=== PATIENT | male | born 1960 | race Caucasian/White ===

== ENCOUNTER 2019-05-31 09:23 | Outpatient (CLI) | payer OTHER, SELFPAY ==
--- NOTE | ~2019-05-31 | US_ITS ---
EXAMINATION: US abdomen complete EXAM DATE: 05/31/2019 10:18 INDICATION: Left-sided abdominal pain. TECHNIQUE: Multiple grayscale and Doppler images of the complete abdomen were obtained (by a technolo gist who performed the scan) and subsequently reviewed. Comparison is made to prior examination from 09/29/2008. FINDINGS: The abdominal aorta is normal in caliber. Visualized portion IVC is patent. The pancreatic head a nd body are normal in appearance. The pancreatic tail is not visualized. The liver has normal echogenicity and contour. There are no focal liver lesions identified. There is no evidence of intrahepatic biliary duct dilation. Portal venous flow was seen in the hepatopedal , normal direction and has normal Doppler waveform. Common bile duct measures 4 mm, which is normal. The gallbladder wall is normal in thickness, with ex pected amount of distention. No sonographic evidence of pericholecystic fluid. There is no cholelit hiases. Technologist performing exam reports patient did not demonstrate sonographic Blanton's sign. Please note that this sign is less reliable in patients who have received pain medication. Right kidney: There is normal contour and echogenicity. It measures 11.2 x 6.6 x 5.3 centimeters. T here is a lobulation which appears unchanged compared to 2008. There is no hydronephrosis. Left kidney: There is normal contour and echogenicity. It measures 12.3 x 5.4 x 5.5 centimeters. T here are no focal renal lesions identified. There is no hydronephrosis. The spleen measures 10 centimeters and is morphologically normal. IMPRESSION: 1. Unremarkable complete abdominal ultrasound exam. Reviewed, dictated and finalized at location B. [facility] [employer]
== END 2019-05-31 09:24 | disposition home or self-care (01) ==
PROVIDERS: PCP Family Medicine; Visit Provider Family Medicine
DX: R10.9 Unspecified abdominal pain (principal)
CPT/HCPCS: 76700

== ENCOUNTER 2020-01-30 07:56 | Outpatient (CLI) | payer OTHER, SELFPAY ==
--- NOTE | 2020-02-25 11:39 | WPDHOMESLEEP ---
Sleep Study - Home Unattended Date of Study: 01/30/20 Ordering Provider: Kamaljit Henderson MD Interpreting Physician: Lyudmila Brandt MD Home Sleep Study Type: Apnea Link Air Height: 1.78 m Weight: 79.832 kg Body Mass Index: 25.2 [place]: 13 Reason for Sleep Study Waking up gasping for breath Sleep History Micha Denise is a 59 year old man with a history of gasping for breath at night. He notices his heart beating irregularly and rapidly for several minutes. This is been going on for several years. Has had 2 previous sleep test which showed negative results. These tests were 20 years ago. He has multiple members of his family who use CPAP for sleep apnea. He frequently snores and it is frequently loud enough the others complain about it. He rarely awakens at night with heartburn, bowel chair coughing. He occasionally awakens from sleep feeling short of breath. He occasionally has trouble sleeping with a cold. He occasionally wakes up gasping for breath at night and occasionally has breathing problems at night reported to him by others. He does not sweats excessively at night. He occasionally notices his heart being irregularly at night. He occasionally falls asleep during the day, never in voluntary leak, never while driving. He is retired. He does not fall asleep during physical effort. He does not have loss of muscle tone was strong motion. He rarely has daytime difficulties due to excessive sleepiness. He does not feel paralyzed on waking or falling asleep and does not have vivid dreams like seems upon awakening or falling asleep. He has never for a to go to sleep. He rarely has nightmares. He occasionally remembers his dreams. He rarely has racing thoughts, rarely feels said depressed or anxious. He does not have muscular tension and does not notice part of his body jerking at night. He rarely kicks at night. He did rarely has aching feeling in his legs before sleep. He rarely has leg pain during the night. He denies morning jaw pain. He occasionally g of sleep during teeth. He rarely is bothered by pain during the day and rarely is awakened by pain at night. He occasionally wakes up feeling stiff in the morning, rarely with sore or aching muscles. He rarely wakes up with pain in the neck and spine. He has fatigue and bowel disturbances. Normal bedtime is 10:00 p.m. falling asleep within 5-10 minutes waking up multiple times at night. 99% the times he a wakes he stays awake 1 or 2 minutes but on occasion he will stay awake 1 or 2 hours. When he is awake he will lie in bed and try to go back to sleep. His normal wake up time is between 5:00 a.m. and 6:30 a.m.. We can schedule is the same. He does not take naps. A short nap is not refreshing. He is drowsy in the morning for 3 hours or longer. He feels better in the morning then other times of day. Habits: Never smoked tobacco. Caffeine 1-2 pt per day. Alcohol 2 or 3 beers on 2 or 3 days out of the week. No recreational drugs. [facility] Past Medical History Medical History (Updated 02/25/20 @ 11:45 by Lyudmila Brandt MD) Abdominal pain in male Abnormal fasting glucose Carpal tunnel syndrome on both sides Glaucoma History of basal cell carcinoma Hypersomnolence Hypertension Irritable bowel syndrome with diarrhea Mixed hyperlipidemia Family History Family History Mother Diabetes mellitus, Onset Age: 80 Family history of kidney disease, Onset Age: 80 Family history of chronic obstructive pulmonary disease Family history of dementia Family history of congestive heart failure Father Patient's father is , Onset Age: 61 Family history of cardiovascular disease Acute myocardial infarction Social History Social History (Updated 02/25/20 @ 11:47 by Lyudmila Brandt MD) Smoking status: Never smoker Alcohol intake: current Drinks per week: 5 Alcohol use details: 2-3 drinks on 2-3 d
[2020-03-02 10:09] VITALS: BMI 25.2
== END 2020-01-30 07:57 | disposition home or self-care (01) ==
LOC: ANHCSM 08:19
PROVIDERS: PCP Family Medicine; Visit Provider Internal Medicine Cardiovascular Disease
DX: G47.30 Sleep apnea, unspecified (principal); G47.10 Hypersomnia, unspecified
CPT/HCPCS: 95806

== ENCOUNTER 2020-03-30 02:33 | Outpatient (CLI) | payer OTHER, SELFPAY ==
[2020-03-30 18:35] LABS: SARS-CoV-2 RNA PCR Negative
== END 2020-03-30 02:34 | disposition home or self-care (01) ==
LOC: ANHCOVIDDT 02:33
PROVIDERS: PCP Family Medicine; Visit Provider Internal Medicine Critical Care Medicine
DX: Z01.812 Encounter for preprocedural laboratory examination (principal); Z20.828 Contact with and (suspected) exposure to other viral communicable diseases
CPT/HCPCS: 87635; C9803; U0003

== ENCOUNTER → 2020-09-08 01:25 | Outpatient (CLI) | payer OTHER, SELFPAY ==
[2020-09-09 19:27] LABS: SARS-CoV-2 RNA PCR Negative
== END ==
PROVIDERS: PCP Family Medicine; Visit Provider Internal Medicine Critical Care Medicine
DX: Z01.812 Encounter for preprocedural laboratory examination (principal); Z20.822 Contact with and (suspected) exposure to COVID-19
CPT/HCPCS: C9803; U0003; U0005

== ENCOUNTER 2020-11-03 09:22 | Outpatient (CLI) | payer OTHER, SELFPAY ==
--- NOTE | 2020-11-18 16:00 | WPDSLEEPSTUD ---
Sleep Study Date of Study: 11/03/20 Ordering Provider: Marcus Stover APRN Interpreting Physician: Lyudmila Brandt MD Sleep Study Type: Split Polysomnogram Height: 1.78 m Weight: 80.739 kg Body Mass Index: 25.5 Neck Circumference (inches): 16 [place]: 8 Reason for Sleep Study Hypersomnia Sleep History Micha Denise is a 59 year old man reports waking up gasping for breath and noticing his heart beating rapidly for few minutes during the night. This has been going on for years. He had 2 prior sleep tests without a diagnosis of sleep-disordered breathing. There is a family history of sleep apnea in multiple family members. He frequently snores loudly enough that others complain about it. He rarely awakens at night with heartburn, belching or coughing. He occasionally awakens from sleep feeling short of breath. He occasionally has trouble sleeping with a cold and occasionally gasp for breath at night. He occasionally has breathing problems at night reported to him by his . He never sweats excessively at night, he occasionally notices his heart pounding irregularly at night. He occasionally falls asleep during the day. He never falls asleep involuntarily or while driving. He does not have loss of muscle tone with strong emotion. He rarely has daytime difficulties due to excessive sleepiness. He does not feel paralyzed on waking or falling asleep nor does he have vivid dreamlike scenes upon awakening or falling asleep. He does not feel afraid to go to sleep. He rarely has nightmares. He occasionally remembers his dreams. He rarely has racing thoughts, feelings of sadness, depression or anxiety. He does not have muscular tension or notice part of his body jerking. He rarely kicks at night, rarely is crawling aching feelings in his legs or any other kind of leg pain at night. He does not have morning jaw pain. He occasionally grinds his teeth during sleep. He rarely is bothered by pain during the day, rarely awakened by pain at night. He occasionally wakes up feeling stiff in the morning rarely with sore achy muscles, rarely with spine and joint pains. He has fatigue. Normal bedtime 10:00 p.m. falling asleep within 5-10 minutes, waking multiple times at night. When he awakens he will try to reposition, control his mind so he does not over think and return to sleep. Most of the time it takes him 1 or 2 minutes to fall asleep again however 1% of the time he says it takes 1-2 hours to return to sleep. He does not take naps in the afternoon or evening. A short nap is not refreshing. He is drowsy in the morning for 3 hours or longer. Habits: Never smoked tobacco. Caffeine 16-20 oz per day. Alcohol 2-3 beers on 2-3 days out of the week. No recreational drugs. [facility] Past Medical History Medical History (Updated 11/18/20 @ 16:09 by Lyudmila Brandt MD) Abdominal pain in male Abnormal fasting glucose BMI 23.0-23.9, adult Carpal tunnel syndrome on both sides Glaucoma History of basal cell carcinoma Hypersomnolence Hypertension Irritable bowel syndrome with diarrhea Mixed hyperlipidemia Vitamin B12 deficiency anemia Family History Family History Mother Diabetes mellitus, Onset Age: 80 Family history of kidney disease, Onset Age: 80 Family history of chronic obstructive pulmonary disease Family history of dementia Family history of congestive heart failure Father Patient's father is , Onset Age: 61 Family history of cardiovascular disease Acute myocardial infarction Social History Social History (Updated 11/11/20 @ 13:17 by Porsche Dykes MA) Smoking status: Never smoker Alcohol intake: current Drinks per week: 6 Alcohol use details: 2-3 drinks on 2-3 days out of the week Substance use: never Substance use type: does not use Medications Home Medications Medication Instructions Recorded Confirmed Type aspirin 8
[2020-11-23 11:01] VITALS: BMI 25.5
== END 2020-11-04 06:38 | disposition home or self-care (01) ==
LOC: ANHCSM 09:22
PROVIDERS: PCP Family Medicine; Visit Provider Nurse Practitioner Family
DX: R06.83 Snoring (principal); G47.10 Hypersomnia, unspecified
CPT/HCPCS: 95811

== ENCOUNTER 2021-05-24 00:26 | Day surgery (SDC) | payer OTHER, SELFPAY ==
[2021-05-21 17:50] VITALS: BMI 24.7
[2021-05-24] VITALS (8 sets, daily range): BP systolic 115–149; BP diastolic 73–88; PULSE 59–70; RESP 14–18; TEMP 36.4; O2SAT 94–100; BMI 24.0
[2021-05-24 07:31] LABS: Basophils Percent Auto 0.5 % (0.2-1.2); Eosinophils Absolute Auto 0.1 K/mm3 (0-0.3); Eosinophils Percent Auto 1.7 % (0-4.4); Hematocrit 44.4 % (42.0-52.0); Hemoglobin 15.4 g/dL (14.0-18.0); Immature Granulocyte Absolute 0.01 K/mm3 (0.00-0.031); Immature Granulocyte Percent A 0.2 % (0-0.5); Lymphocytes Absolute Auto 1.41 K/mm3 (0.9-3.2); Lymphocytes Percent Auto 22.3 % (18.3-44.2); Mean Corpuscular HGB Conc 34.7 g/dl (32-36); Mean Corpuscular Hemoglobin 31.9 pg (26-34); Mean Corpuscular Volume 91.9 fl (80-100); Mean Platelet Volume 8.8 fl (7.4-10.4); Monocytes Absolute Auto 0.6 K/mm3 (0.1-0.6); Neutrophils Absolute Auto 4.1 K/mm3 (1.3-6.7); Neutrophils Percent Auto 65.3 % (45.5-73.1); Platelet Count Result 163 k/mm3 (150-375); Red Blood Count 4.83 M/mm3 (4.6-6.20); Red Cell Distribution Width 12.9 % (11.5-14.5); White Blood Count 6.3 K/mm3 (4.5-10.0)
[2021-05-24 07:41] LABS: Anion Gap 5 mmol/L (8-16); Blood Urea Nitrogen 15 mg/dL (9-20); Calcium 9.2 mg/dL (8.4-10.2); Carbon Dioxide 28 mmol/L (22-30); Chloride 105 mmol/L (98-107); Estimated CRCL calculation 72 ml/min; Estimated Glomerular Filt Rate > 60; Glucose 111 mg/dL (65-110); Sodium 138 mmol/L (137-145)
--- NOTE | 2021-05-24 08:48 | WPDMODSED ---
Moderate Sedation Note-Pt Data Patient Data Diagnosis: Abnormal coronary calcium score Present Complaint: none Procedure to be performed/Plan: left heart catheterization Allergies Allergy/AdvReac Type Severity Reaction Status Date / Time clindamycin AdvReac Severe Diarrhea Verified 05/21/21 18:41 Home Medications Medication Instructions Recorded Confirmed Type aspirin 81 mg tablet,delayed 81 mg PO EVERY OTHER DAY 03/13/19 05/24/21 History release cyanocobalamin (vitamin B-12) 500 500 mcg PO DAILY 03/13/19 05/24/21 History mcg tablet latanoprost 0.005 % eye drops 1 drop EACH EYE DAILY 03/13/19 05/24/21 History timolol maleate 0.5 % eye gel 1 drop EACH EYE DAILY 03/13/19 05/24/21 History forming solution cholecalciferol (vitamin D3) 50 2,000 unit PO DAILY cap 11/11/20 05/24/21 History mcg (2,000 unit) capsule metoprolol succinate 100 mg 100 mg PO DAILY #90 tablet 02/12/21 05/24/21 Rx tablet,extended release 24 hr simvastatin 20 mg tablet 20 mg PO DAILY #90 tablet 02/12/21 05/24/21 Rx Daily Probiotic 1 tablet PO DAILY 05/21/21 05/24/21 History calcium polycarbophil [Fiber 625 mg PO DAILY 05/21/21 05/24/21 History (calcium polycarbophil)] Current Medications: Active Medications Sodium Chloride (Normal Saline Iv) 500 mls @ 100 mls/hr IV CONT .Q5H NOEL Sedation/Anesthesia: No previous sedation/anesthesia problems (including family history). [facility] Past Medical History Medical History (Updated 05/04/21 @ 17:24 by Fam Ibrahim MD) Abdominal pain in male Abnormal fasting glucose BMI 23.0-23.9, adult BMI 24.0-24.9, adult Carpal tunnel syndrome on both sides Colon cancer screening Cologuard screening through insurance on 03/12/2021 was negative. Recheck in 3 years Family history of premature coronary artery disease exercise stress test was negative for ischemia 05/03/2021 Glaucoma History of basal cell carcinoma Hypersomnolence Hypertension Irritable bowel syndrome with diarrhea Mixed hyperlipidemia Vitamin B12 deficiency anemia Family History Family History Mother Diabetes mellitus, Onset Age: 80 Family history of kidney disease, Onset Age: 80 Family history of chronic obstructive pulmonary disease Family history of dementia Family history of congestive heart failure Father Patient's father is , Onset Age: 61 Family history of cardiovascular disease Acute myocardial infarction Social History Social History Smoking status: Never smoker Second hand tobacco smoke exposure: Yes (patient's father smoked 3 PPD, lived [place] to [employer] growing up) Alcohol intake: current Drinks per week: 8 Alcohol use details: typically 2-3 drinks on weekend days or 3 days a week Substance use: never Substance use type: does not use Living arrangements: with family Spiritual care concerns: No Mod Sed Physical Exam Physical Exam Pre Procedural Exam: Normal: Appearance, Neck, Throat, Airway, Lungs, Heart Size, Heart Rate, Heart Rhythm and Extremities Hours since solid foods: 12 Hours since liquid intake: 12 Mallampati Classification: class II Internal Medicine - PN: Obj Da Vital Signs Vital Signs: Vital Signs - 24 hr 05/24/21 07:26 Temperature 36.4 C L Pulse Rate 70 Respiratory Rate 16 Blood Pressure 149/88 H Pulse Oximetry 100 Meds/Results Medications: Active Medications Generic Name Dose Route Start Last Admin Trade Name Freq PRN Reason Stop Dose Admin Sodium Chloride 500 mls @ 100 mls/hr 05/24/21 07:00 Normal Saline Iv IV CONT .Q5H NOEL Labs CBC & Chem 7: 05/24/21 07:24 05/24/21 07:24 Labs: Laboratory Results - last 24 hr 05/24/21 05/24/21 07:24 07:24 WBC 6.3 RBC 4.83 Hgb 15.4 Hct 44.4 MCV 91.9 MCH 31.9 MCHC 34.7 RDW 12.9 Plt Count 163 MPV 8.8 Im
--- NOTE | 2021-05-24 09:26 | P.PCNCC_ITS ---
Cardiac Cath Procedure Note Date of procedure:: 05/24/21 Performing physician:: Alex Quiroz MD Indication:: Abnormal coronary calcium score electrocardiographically abnormal stress echo Brief clinical history:: this is a 60-year-old man without history of coronary disease and without any ischemic symptoms. He recently underwent ischemic testing because of coronary disease in his brother. He was found to have a elevated coronary calcium score. This was followed by stress echocardiogram which was electrocardiographically mildly abnormal but there were no echocardiographic abnormalities. In this setting and angiogram has been scheduled for today. Procedure Procedure performed:: Left ventriculography coronary angiography Angio-Seal to right femoral artery Sedation/Medication given:: fentanyl 50 mg Versed 2 mg case start time 9:00 a.m. case end time 9:17 a.m. Access site:: right femoral artery Estimated blood loss:: 15 cc Procedure note:: patient was brought to the cardiac catheterization lab in the postabsorptive state where the right femoral [place] was prepped and draped in the usual sterile fashion. anesthesia was provided with 1% lidocaine injected locally. Using the modified Seldinger technique a 5 [place] vascular sheath was then placed and a left heart catheterization was carried out. A 5 [place] angled pigtail catheter was used to perform left ventriculography in the [place] projection and to measure left-sided central hemodynamics. Following this a standard 5 [place] FL4 catheter was used to engage inject the left coronary artery in multiple projections. A 5 [place] JR4 catheter was used to engage inject the right coronary artery in orthogonal projections. Following this the case was terminated an angiogram was done of the femoral artery through the sheath after which an Angio-Seal device was deployed with a good hemostatic result. 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 Findings:: Hemodynamics: Central aortic pressure was 126 over 68 left ventricle 126/0 end-diastolic pressure 10 is no gradient on pullback the aortic valve. Left ventricle: The LV is normal in size all segments contract normally the global ejection fraction is 60-65%. No regional wall motion abnormalities were identified. The left main coronary artery is nicely patent the left anterior descending is a moderate caliber artery extends down to, around the apex and provides a significant amount of flow to the inferior wall. There is 1 area of atherosclerotic stenosis in the LAD in the mid segment. This lesion is somewhat eccentric but represents about 50-60% stenosis angiographica lly. The remainder of the LAD is normal. Circumflex is a large caliber vessel dominant to the posterior circulation. The circumflex the marginal and posterior branches are angiographically free of disease. Right coronary artery is small in caliber and gives rise to 2 acute marginal RV branches. The right coronary artery is angiographically free of disease. Conclusion:: 1. Single-vessel coronary artery disease with approximately 50- 60% stenosis in the midportion of the LAD as described above 2. preserved left ventricular systolic function 3. left coronary dominant circulation 4. Angio-Seal to right femoral artery Alex Quiroz MD [facility]
--- NOTE | 2021-05-24 12:31 | SUR.PHASEII ---
1230-DISCHARGE INSTRUCTION REVIEWED WITH PT, ALL QUESTIONS ANSWERED. PT WILL BE TRANSPORTED OFF FLOOR VIA WHEELCHAIR.
== END 2021-05-24 12:40 | disposition home or self-care (01) ==
PROVIDERS: PCP Family Medicine; Visit Provider Specialist
PROC: 4A023N7 Measurement of Cardiac Sampling and Pressure, Left Heart, Percutaneous Approach (ICD-10-PCS; CPT 93452; principal; 2021-05-24 08:30)
DX: I25.10 Atherosclerotic heart disease of native coronary artery without angina pectoris (principal); R94.39 Abnormal result of other cardiovascular function study; I10 Essential (primary) hypertension; E78.2 Mixed hyperlipidemia; H40.9 Unspecified glaucoma; K58.0 Irritable bowel syndrome with diarrhea; D51.3 Other dietary vitamin B12 deficiency anemia; Z79.82 Long term (current) use of aspirin
CPT/HCPCS: 36415; 80048; 85025; 93458; A9270; C1760; C1887; C1894; G0269; J0583; J1644; J2250; J3010; J7040

== ENCOUNTER 2022-01-31 00:21 | Day surgery (SDC) | payer OTHER, SELFPAY ==
[2022-01-12 14:59] VITALS: BMI 23.7
[2022-01-31 06:23] VITALS: BP 134/68; PULSE 63; RESP 18; TEMP 36.1; O2SAT 100
[2022-01-31] MEDS: LACTATED RINGERS 1,000 ML 150 ML IV CONT (06:34)
--- NOTE | 2022-01-31 06:55 | WPDANESEPPF ---
Anes - Initial Pre Proc Eval Procedure: Operation Date: 01/31/22 07:30 Proposed Procedures p Colonoscopy - Joseph Cooper MD Date/Time: 01/31/22 06:55 Surgeon: Joseph Cooper MD Pre Op Diagnosis: diarrhea Patient Data Age: 61 Gender: M Height: 1.78 m Weight: 74.2 kg Last Vital Signs Temp 36.1 C L 01/31/22 06:23 Pulse 63 01/31/22 06:23 Resp 18 01/31/22 06:23 BP 134/68 01/31/22 06:23 Pulse Ox 100 01/31/22 06:23 O2 Del Method Room Air 01/31/22 06:23 Allergies Allergy/AdvReac Type Severity Reaction Status Date / Time clindamycin AdvReac Severe Diarrhea Verified 01/31/22 06:21 Home Medications Medication Instructions Recorded Confirmed Type cyanocobalamin (vitamin B-12) 500 500 mcg PO DAILY 03/13/19 01/12/22 History mcg tablet (Vitamin B-12) latanoprost 0.005 % eye drops 1 drop ophthalmic (eye) DAILY 03/13/19 01/12/22 History timolol maleate 0.5 % eye gel 1 drop ophthalmic (eye) DAILY 03/13/19 01/12/22 History forming solution cholecalciferol (vitamin D3) 50 2,000 unit PO DAILY 11/11/20 01/12/22 History mcg (2,000 unit) capsule metoprolol succinate 100 mg 100 mg PO DAILY #90 tabs 02/12/21 01/12/22 Rx tablet,extended release 24 hr rosuvastatin 20 mg tablet (Crestor) 20 mg PO DAILY 07/04/21 01/12/22 History aspirin 81 mg tablet,delayed 81 mg PO DAILY 08/24/21 01/12/22 History release (Adult Low Dose Aspirin) calcium polycarbophil 625 mg 1,250 mg PO BID #120 tabs 10/06/21 01/12/22 Rx tablet (Fiber (calcium polycarbophil)) amitriptyline 10 mg tablet 10 mg PO QHS #30 tabs 11/23/21 01/12/22 Rx sodium,potassium,mag sulfates 17.5 See Rx Instructions PO .COMPLEX 12/07/21 Rx gram-3.13 gram-1.6 gram oral soln #354 mL (Suprep Bowel Prep Kit) Patient hx anesthesia problems: none Family hx anesthesia problems: none Results Review: All pre-operative results and documents have been reviewed as part of the pre-operative evaluation. [facility] Past Medical History Medical History (Updated 01/31/22 @ 06:59 by Quinton Kaba DO) Abdominal pain in male Abnormal fasting glucose Atherosclerotic heart disease of [place] coronary artery without angina pectoris (05/24/21) 50-60% lesion in the mid LAD on 05/24/2021 BMI 23.0-23.9, adult BMI 24.0-24.9, adult CAD (coronary artery disease) Carpal tunnel syndrome on both sides Colon cancer screening Cologuard screening through insurance on 03/12/2021 was negative. Recheck in 3 years Family history of premature coronary artery disease exercise stress test was negative for ischemia 05/03/2021 Glaucoma History of basal cell carcinoma Hypersomnolence Hypertension Irritable bowel syndrome with diarrhea Mixed hyperlipidemia Total cholesterol 115, HDL 43, triglycerides 105, LDL 51 on 11/02/2021. MARSHA (obstructive sleep apnea) Restless leg syndrome Vitamin B12 deficiency anemia Family History Family History Mother Diabetes mellitus, Onset Age: 80 Family history of kidney disease, Onset Age: 80 Family history of chronic obstructive pulmonary disease Family history of dementia Family history of congestive heart failure Father Patient's father is , Onset Age: 61 Family history of cardiovascular disease Acute myocardial infarction Social History Social History Smoking status: Never smoker Second hand tobacco smoke exposure: Yes (patient's father smoked 3 PPD, lived next to [employer] growing up) Alcohol intake: current Drinks per week: 9 Alcohol use details: typically 2-3 drinks on weekend days or 3 days a week Substance use: never Substance use type: does not use Living arrangements: with family Spiritual care concerns: No Anes - Eval Final PreProcedure Day of Procedure 01/31/22 06:55 Patient weight: normal Heart: regular rate and rhythm Lungs: clear to aus
--- NOTE | 2022-01-31 07:44 | PM.HPGS ---
History of Present Illness History of Present Illness Consent: Risks, benefits, and alternatives have been discussed and questions answered. Patient agrees to proceed with procedure. Chief complaint: diarrhea Narrative: Micha Denise is a 61 year old male Presents for colonoscopy. Patient complains of ongoing diarrhea and urgency. He denies bleeding. He has no significant abdominal pain. Recent trial of fiber supplementation is not help. He was recently given a low dose of Elavil 10mg at bedtime that seems to have eased his urgency somewhat. He presents today for colonoscopy. His last colonoscopy 2013 was unremarkable. Patient's family history noncontributory. Review of Systems Review of Systems: Review of systems noncontributory. [facility] Past Medical History Medical History (Updated 01/31/22 @ 06:59 by Quinton Kaba DO) Abdominal pain in male Abnormal fasting glucose Atherosclerotic heart disease of [place] coronary artery without angina pectoris (05/24/21) 50-60% lesion in the mid LAD on 05/24/2021 BMI 23.0-23.9, adult BMI 24.0-24.9, adult CAD (coronary artery disease) Carpal tunnel syndrome on both sides Colon cancer screening Cologuard screening through insurance on 03/12/2021 was negative. Recheck in 3 years Family history of premature coronary artery disease exercise stress test was negative for ischemia 05/03/2021 Glaucoma History of basal cell carcinoma Hypersomnolence Hypertension Irritable bowel syndrome with diarrhea Mixed hyperlipidemia Total cholesterol 115, HDL 43, triglycerides 105, LDL 51 on 11/02/2021. MARSHA (obstructive sleep apnea) Restless leg syndrome Vitamin B12 deficiency anemia Family History Family History Mother Diabetes mellitus, Onset Age: 80 Family history of kidney disease, Onset Age: 80 Family history of chronic obstructive pulmonary disease Family history of dementia Family history of congestive heart failure Father Patient's father is , Onset Age: 61 Family history of cardiovascular disease Acute myocardial infarction Social History Social History Smoking status: Never smoker Second hand tobacco smoke exposure: Yes (patient's father smoked 3 PPD, lived [place] to [employer] growing up) Alcohol intake: current Drinks per week: 9 Alcohol use details: typically 2-3 drinks on weekend days or 3 days a week Substance use: never Substance use type: does not use Living arrangements: with family Spiritual care concerns: No Meds Home Medications and Allergies Home Medications Medication Instructions Recorded Confirmed Type cyanocobalamin (vitamin B-12) 500 500 mcg PO DAILY 03/13/19 01/12/22 History mcg tablet (Vitamin B-12) latanoprost 0.005 % eye drops 1 drop ophthalmic (eye) DAILY 03/13/19 01/12/22 History timolol maleate 0.5 % eye gel 1 drop ophthalmic (eye) DAILY 03/13/19 01/12/22 History forming solution cholecalciferol (vitamin D3) 50 2,000 unit PO DAILY 11/11/20 01/12/22 History mcg (2,000 unit) capsule rosuvastatin 20 mg tablet (Crestor) 20 mg PO DAILY 07/04/21 01/12/22 History aspirin 81 mg tablet,delayed 81 mg PO DAILY 08/24/21 01/12/22 History release (Adult Low Dose Aspirin) calcium polycarbophil 625 mg 1,250 mg PO BID #120 tabs 10/06/21 01/12/22 Rx tablet (Fiber (calcium polycarbophil)) amitriptyline 10 mg tablet 10 mg PO QHS #30 tabs 11/23/21 01/12/22 Rx sodium,potassium,mag sulfates 17.5 See Rx Instructions PO .COMPLEX 12/07/21 Rx gram-3.13 gram-1.6 gram oral soln #354 mL (Suprep Bowel Prep Kit) metoprolol succinate 100 mg 100 mg PO DAILY #90 tabs 01/31/22 Rx tablet,extended release 24 hr Allergies Allergy/AdvReac Type Severity Reaction Status Date / Time clindamycin AdvReac Severe Diarrhea Verified 01/31/22 06:21 Vital Signs Vital Signs - 24 hr 01/31/22 06:23
[2022-01-31 07:46] VITALS: BP 88/55; PULSE 59; RESP 15; O2SAT 99
[2022-01-31 07:56] VITALS: BP 99/63; PULSE 69; RESP 21; O2SAT 99
[2022-01-31 08:06] VITALS: BP 100/69; PULSE 70; RESP 20; O2SAT 99
== END 2022-01-31 08:18 | disposition home or self-care (01) ==
PROVIDERS: PCP Family Medicine; Visit Provider Internal Medicine Gastroenterology
PROC: 0DJD8ZZ Inspection of Lower Intestinal Tract, Via Natural or Artificial Opening Endoscopic (ICD-10-PCS; CPT 45378; principal; 2022-01-31 07:30)
DX: Z12.11 Encounter for screening for malignant neoplasm of colon (principal); R19.7 Diarrhea, unspecified; K64.8 Other hemorrhoids; K57.30 Diverticulosis of large intestine without perforation or abscess without bleeding; Z79.82 Long term (current) use of aspirin; K58.0 Irritable bowel syndrome with diarrhea; I25.10 Atherosclerotic heart disease of native coronary artery without angina pectoris; G47.10 Hypersomnia, unspecified; G47.33 Obstructive sleep apnea (adult) (pediatric); Z85.828 Personal history of other malignant neoplasm of skin; I10 Essential (primary) hypertension; E78.2 Mixed hyperlipidemia; G25.81 Restless legs syndrome; D51.9 Vitamin B12 deficiency anemia, unspecified
CPT/HCPCS: 45380; 88305; J2704; J7120

== ENCOUNTER → 2023-08-02 09:16 | Outpatient (CLI) | payer OTHER, SELFPAY ==
--- NOTE | ~2023-08-02 | XR_ITS ---
Lumbosacral Spine: AP, oblique, and lateral views Clinical History: Pain Findings: The normal lordotic curve is maintained. Probable mild chronic anterior wedging deformity o f L1. Suspected mild chronic loss of height of T8 and T9. There are mild to moderate degenerative dis c changes throughout the lumbar spine. There is mild facet arthropathy throughout the lumbar spine. T he sacroiliac joints are normally outlined. Impression: Suspected mild chronic wedging deformity/loss of height of T8, T9, and L1. [id number] degenerative spondylosis of the lumbar spine, as above. Reviewed, dictated and finalized at [facility]. Impression: Suspected mild chronic wedging deformity/loss of height of T8, T9, and L1. [id number] degenerative spondylosis of the lumbar spine, as above.
--- NOTE | ~2023-08-02 | XR_ITS ---
Right Shoulder Technique: AP and axillary views were obtained. Clinical History: Pain Findings: No fracture or dislocation is seen. Osseous alignment is anatomic. The glenohumeral and acr omioclavicular joint spaces are preserved. Soft tissues are unremarkable. Impression: Unremarkable right shoulder radiographs. Reviewed, dictated and finalized at [facility]. Impression: Unremarkable right shoulder radiographs.
== END ==
PROVIDERS: PCP Family Medicine; Visit Provider Family Medicine
DX: M25.511 Pain in right shoulder (principal); M54.42 Lumbago with sciatica, left side; M43.06 Spondylolysis, lumbar region
CPT/HCPCS: 72110; 73030